=== PATIENT | female | born 1975 | race Two or more races ===

== ENCOUNTER 2024-01-20 21:09 | Emergency (ER) | payer MEDICARE, OTHER ==
[~2024-01-20] VITALS: Ht 157.5 cm; Wt 60.0 kg
[~2024-01-20 21:09] MED LIST: FENT12DI TD; MORP1TAB12 PO; PROM25TA10 PO
[2024-01-20 21:31] VITALS: BP 142/90; PULSE 88; RESP 20; O2SAT 97
== END 2024-01-21 01:23 | disposition home or self-care (01) ==
LOC: ER 21:09 → EDUNIT# 21:09 → EDBD 21:09 → ER 01-21 01:23
DX: M79.10 Myalgia, unspecified site (principal); F41.9 Anxiety disorder, unspecified; Z88.8 Allergy status to other drugs, medicaments and biological substances; Z79.899 Other long term (current) drug therapy